=== PATIENT | male | born 1980 | race Caucasian/White ===

== ENCOUNTER 2022-05-17 08:15 | Outpatient (RCR) | payer OTHER, SELFPAY ==
--- NOTE | 2022-03-07 15:57 | PT.OIE ---
Current Diagnoses Achilles tendinitis, unspecified leg (03/07/22) Visit Care Team Role Provider Type Papo Pleitez Attending Provider Non-Staff Family Provider Primary Care Provider Referring Provider Specialty: Medical Address: [address] [place] [address], [facility] Email: Physical Therapy Initial Evaluation PT-OP-A Visit Information Start: 03/03/22 15:45 Freq: Status: Active Protocol: Document 03/07/22 09:00 AMB (Rec: 03/09/22 15:56 AMB [id number]) Out-Patient Physical Therapy Visit Information Visit Information Visit Type Initial Evaluation Visit Start Time 09:00 Visit Stop Time 09:45 Total Visit Minutes 45 Visit Number 1 PT-OP-B Current Condition Start: 03/03/22 15:45 Freq: Status: Active Protocol: Document 03/07/22 09:00 AMB (Rec: 03/09/22 15:56 AMB [id number]) Current Condition History of Current Condition Onset Date 2 weeks ago Current Complaints left achilles pain History of Current Condition Patient was cutting while playing lacrosse and felt pain in his achilles. He kept playing. It was really hurting on the drive home, some swelling medially, but denies extreme swelling or bruising. [place] didn't tear the achilles per his report. Was wearing a boot, now has progressed to regular [place] boots. Doesn't really have pain with walking, but hasn't been running. Has been able to do light squats ok. Wants to be able to return to running/cutting. 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/Recovery PT-OP-C Subjective Start: 03/03/22 15:45 Freq: Status: Active Protocol: Document 03/07/22 09:00 AMB (Rec: 03/09/22 15:56 AMB [id number]) Patient Questionnaires Foot & Ankle Ability Measure- ADL and Sports FAAM-ADL Score 69 FAAM-ADL Impairment 1 to 19% Impaired (Score 67-83 ) FAAM-Sport Score 8 FAAM-Sport Impairment 60 to 79% Impaired (Score 6-11 ) Lower Extremity Functional Scale LEFS Score 69 LEFS Impairment 1 to 19% Impaired (Score 63-79 ) OP-PT Pain Assessment Comments Pain Comments 2/10 pain at left achilles, 4/ 10 left elbow, 2/10 left shoulder PT-OP-G Mobility & Gait Start: 03/03/22 15:45 Freq: Status: Active Protocol: Document 03/07/22 09:00 AMB (Rec: 03/09/22 15:56 AMB [id number]) OP Gait Assessment Comments Gait Comments No antalgia seen with walking PT-OP-J Posture/Palpation/Skin Start: 03/03/22 15:45 Freq: Status: Active Protocol: Document 03/07/22 09:00 AMB (Rec: 03/09/22 15:56 AMB [id number]) Palpation Assessment Location One Palpation Location Left achilles Palpation Findings Edema,Soft Tissue Tightness Palpation Details Tenderness and swelling at medial achilles PT-OP-M Strength Start: 03/03/22 15:45 Freq: Status: Active Protocol: Document 03/07/22 09:00 AMB (Rec: 03/09/22 15:56 AMB [id number]) Ankle/Foot Strength Ankle and Foot Manual Muscle Testing Left Dorsiflexion (L4) 5 Normal Inversion 5 Normal Eversion (S1) 5 Normal Comments 2/10 with double leg heel raise x 5. Can perform full range single leg heel raise, but increases pain PT-OP-Q Treatments Start: 03/03/22 15:45 Freq: Status: Active Protocol: Document 03/07/22 09:45 AMB (Rec: 03/09/22 15:57 AMB [id number]) Therapeutic Exercises Standing Exercises single leg heel raise Standing Exercise Name eccentri conl Side left Reps/Minutes 10 double leg heel raise Side left Reps/Minutes 10 Other Exercises downward dog Reps/Minutes 30x2 PT-OP-T Assessment and Plan Start: 03/03/22 15:45 Freq: Status: Active Protocol: Document 03/07/22 09:00 AMB (Rec: 03/09/22 15:56 AMB [id number]) Physical Therapy Assessment Rehab Potential Rehabilitation Potential Good Evaluation Complexity Number of Personal Factors/Comorbidities 0 Number of Body Systems Impaired 1-2 Clinical Presentation at Evaluation Stable Impairments Impairments Activity Tolerance,Strength Goals Two Impairment Return to sport Short Term Goal (STG) Ras will run 1 mile over smooth terrain without achilles pain. STG Duration 4 weeks Longterm Goal (LTG) Ras will sprint and cut without pain. LTG Duration 8 weeks One Impairment Strength Short Term Goal (STG) Ras will perform 20 double leg heel raises without achilles pain. STG Duration 4 weeks Code Inspector Goal (LTG) Ras will perform 20 single leg heel raises without achilles pain. LTG Duration 8 weeks Assessment Summary Assessment Ras attends physical therapy 2 weeks s/p achilles sprain. He has retained good ankle flexibility and strength with the exception of weakness and pain with single leg heel raises. He will benefit from physical therapy for help progressing back to sport. He is unable to run, cut or jump, and given his active lifestyle an active duty [place] status, this is important to return to quickly and safely. He also has signs and symptoms consistent with lateral epicondylitis that is more chronic in nature . Physical Therapy Plan Frequency and Duration Frequency of Treatment 2x/Week Duration of Treatment 8 weeks Plan of Care Start Date 03/07/22 Plan of Care End Date 04/25/22 Therapeutic Interventions Therapeutic Interventions Balance Training,Gait Training ,Home Exercise Program,Manual Therapy,Neuromuscular Re- education,Self-Care/Home Management,Soft Tissue Mobilization,Taping, Therapeutic Activities, Therapeutic Exercises Modalities Biofeedback,Cold Pack/Ice Massage,Electric Stimulation, Hot Packs Next Visit Focus/Plan Next Note Type Treatment Note Next Visit Plan Review current HEP: double leg heel raise, eccentric uni heel raise, downward dog
--- NOTE | 2022-03-07 15:58 | PT.OPPOC ---
Physical, Occupational & Speech Therapy At [facility] Current Diagnoses Achilles tendinitis, unspecified leg (03/07/22) Visit Care Team Role Provider Type Papo Pleitez Attending Provider Non-Staff Family Provider Primary Care Provider Referring Provider Specialty: Medical Address: [address] [place] [address], [id number] Email: Plan Of Care PT-OP-T Assessment and Plan Start: 03/03/22 15:45 Freq: Status: Active Protocol: Document 03/07/22 09:00 AMB (Rec: 03/09/22 15:56 AMB [id number]) Physical Therapy Assessment Rehab Potential Rehabilitation Potential Good Evaluation Complexity Number of Personal Factors/Comorbidities 0 Number of Body Systems Impaired 1-2 Clinical Presentation at Evaluation Stable Impairments Impairments Activity Tolerance,Strength Goals Two Impairment Return to sport Short Term Goal (STG) Ras will run 1 mile over smooth terrain without achilles pain. STG Duration 4 weeks Funeral Planning Counselor Goal (LTG) Ras will sprint and cut without pain. LTG Duration 8 weeks One Impairment Strength Short Term Goal (STG) Ras will perform 20 double leg heel raises without achilles pain. STG Duration 4 weeks Funeral Planning Counselor Goal (LTG) Ras will perform 20 single leg heel raises without achilles pain. LTG Duration 8 weeks Assessment Summary Assessment Ras attends physical therapy 2 weeks s/p achilles sprain. He has retained good ankle flexibility and strength with the exception of weakness and pain with single leg heel raises. He will benefit from physical therapy for help progressing back to sport. He is unable to run, cut or jump, and given his active lifestyle an active duty [place] status, this is important to return to quickly and safely. He also has signs and symptoms consistent with lateral epicondylitis that is more chronic in nature . Physical Therapy Plan Frequency and Duration Frequency of Treatment 2x/Week Duration of Treatment 8 weeks Plan of Care Start Date 03/07/22 Plan of Care End Date 04/25/22 Therapeutic Interventions Therapeutic Interventions Balance Training,Gait Training ,Home Exercise Program,Manual Therapy,Neuromuscular Re- education,Self-Care/Home Management,Soft Tissue Mobilization,Taping, Therapeutic Activities, Therapeutic Exercises Modalities Biofeedback,Cold Pack/Ice Massage,Electric Stimulation, Hot Packs Next Visit Focus/Plan Next Note Type Treatment Note Next Visit Plan Review current HEP: double leg heel raise, eccentric uni heel raise, downward dog Plan of Care Dates Plan of Care Start Date 03/07/22 Plan of Care End Date 04/25/22 Electronically Signed by: Evelia Estrada, PT 03/09/22 9824 If you are in agreement with this Plan of Care, please return a signed and dated copy. I have reviewed this Plan of Care and certify that the skilled therapy services above are required to meet the patient?s needs. Physician Signature Date Printed Name and Credentials Clinical Instructor Signature Printed Name and Credentials
--- NOTE | 2022-03-13 12:56 | PT.OTN ---
Current Diagnoses Achilles tendinitis, unspecified leg (03/13/22) Physical Therapy Treatment Note PT-OP-A Visit Information Start: 03/03/22 15:45 Freq: Status: Active Protocol: Document 03/13/22 11:21 AMB (Rec: 03/13/22 11:48 AMB [id number]) Out-Patient Physical Therapy Visit Information Visit Information Visit Type Treatment Note Visit Start Time 11:15 Visit Stop Time 12:00 Total Visit Minutes 45 Visit Number 2 PT-OP-B Current Condition Start: 03/03/22 15:45 Freq: Status: Active Protocol: Document 03/07/22 09:00 AMB (Rec: 03/09/22 15:56 AMB [id number]) Current Condition History of Current Condition Onset Date 2 weeks ago Current Complaints left achilles pain History of Current Condition Patient was cutting while playing lacrosse and felt pain in his achilles. He kept playing. It was really hurting on the drive home, some swelling medially, but denies extreme swelling or bruising. [place] didn't tear the achilles per his report. Was wearing a boot, now has progressed to regular [place] boots. Doesn't really have pain with walking, but hasn't been running. Has been able to do light squats ok. Wants to be able to return to running/cutting. 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/Recovery PT-OP-C Subjective Start: 03/03/22 15:45 Freq: Status: Active Protocol: Document 03/13/22 11:21 AMB (Rec: 03/13/22 11:48 AMB [id number]) OP-PT Subjective Patient Comments Patient Comments Rolly has been doing PT-OP-G Mobility & Gait Start: 03/03/22 15:45 Freq: Status: Active Protocol: Document 03/07/22 09:00 AMB (Rec: 03/09/22 15:56 AMB [id number]) OP Gait Assessment Comments Gait Comments No antalgia seen with walking PT-OP-J Posture/Palpation/Skin Start: 03/03/22 15:45 Freq: Status: Active Protocol: Document 03/07/22 09:00 AMB (Rec: 03/09/22 15:56 AMB [id number]) Palpation Assessment Location One Palpation Location Left achilles Palpation Findings Edema,Soft Tissue Tightness Palpation Details Tenderness and swelling at medial achilles PT-OP-M Strength Start: 03/03/22 15:45 Freq: Status: Active Protocol: Document 03/07/22 09:00 AMB (Rec: 03/09/22 15:56 AMB [id number]) Ankle/Foot Strength Ankle and Foot Manual Muscle Testing Left Dorsiflexion (L4) 5 Normal Inversion 5 Normal Eversion (S1) 5 Normal Comments 2/10 with double leg heel raise x 5. Can perform full range single leg heel raise, but increases pain PT-OP-Q Treatments Start: 03/03/22 15:45 Freq: Status: Active Protocol: Document 03/13/22 12:44 AMB (Rec: 03/13/22 12:54 AMB [id number]) Gym Equipment Shuttle Recovery plyo Details single leg hop Resistance 50# Reps/Time 2x10 Unilateral Heel Raises Resistance 50# Reps/Time 2x10 Bilateral Heel Raises Resistance 50# Reps/Time 2x10 Unilateral Squats Resistance 50# Reps/Time 2x10 Bilateral Squats Resistance 50# Reps/Time 1x10 Therapeutic Exercises Standing Exercises single leg hop Comments painful did not continue double leg hop Reps/Minutes 2x10 Comments small AMADOU Reps/Minutes 30x3 single leg heel raise Standing Exercise Name eccentri conl Side left Reps/Minutes 10 double leg heel raise Side left Reps/Minutes 10 Manual Therapy Treatment Soft Tissue Mobilization STM Body Location achilles/calf Body Position Sitting PT-OP-T Assessment and Plan Start: 03/03/22 15:45 Freq: Status: Active Protocol: Document 03/13/22 12:44 AMB (Rec: 03/13/22 12:54 AMB [id number]) Physical Therapy Assessment Goals Two Impairment Return to sport Short Term Goal (STG) Ras will run 1 mile over smooth terrain without achilles pain. STG Duration 4 weeks Assisted Goal (LTG) Ras will sprint and cut without pain. LTG Duration 8 weeks One Impairment Strength Short Term Goal (STG) Ras will perform 20 double leg heel raises without achilles pain. STG Duration 4 weeks Kitchen Food Server Goal (LTG) Ras will perform 20 single leg heel raises without achilles pain. LTG Duration 8 weeks Assessment Summary Assessment Rolly tolerated PT well with the exception of agility ladder single leg hops, which increased pain significantly, pain reduced with manual therapy, given double leg hops as HEP. Consider small single leg hops next viist. Physical Therapy Plan Next Visit Focus/Plan Next Note Type Treatment Note Next Visit Plan Progress plyometrics/agility
--- NOTE | 2022-03-16 11:05 | PT.OTN ---
Current Diagnoses Achilles tendinitis, unspecified leg (03/16/22) Physical Therapy Treatment Note PT-OP-A Visit Information Start: 03/03/22 15:45 Freq: Status: Active Protocol: Document 03/16/22 09:45 AMB (Rec: 03/16/22 11:02 AMB [id number]) Out-Patient Physical Therapy Visit Information Visit Information Visit Type Treatment Note Visit Start Time 09:45 Visit Stop Time 10:30 Total Visit Minutes 45 Visit Number 3 PT-OP-B Current Condition Start: 03/03/22 15:45 Freq: Status: Active Protocol: Document 03/07/22 09:00 AMB (Rec: 03/09/22 15:56 AMB [id number]) Current Condition History of Current Condition Onset Date 2 weeks ago Current Complaints left achilles pain History of Current Condition Patient was cutting while playing lacrosse and felt pain in his achilles. He kept playing. It was really hurting on the drive home, some swelling medially, but denies extreme swelling or bruising. [place] showed that [place] didn't tear the achilles per his report. Was wearing a boot, now has progressed to regular [place] boots. Doesn't really have pain with walking, but hasn't been running. Has been able to do light squats ok. Wants to be able to return to running/cutting. 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 Did try lightly jogging to mailbox and that went fine. PT-OP-G Mobility & Gait Start: 03/03/22 15:45 Freq: Status: Active Protocol: Document 03/07/22 09:00 AMB (Rec: 03/09/22 15:56 AMB [id number]) OP Gait Assessment Comments Gait Comments No antalgia seen with walking PT-OP-J Posture/Palpation/Skin Start: 03/03/22 15:45 Freq: Status: Active Protocol: Document 03/07/22 09:00 AMB (Rec: 03/09/22 15:56 AMB [id number]) Palpation Assessment Location One Palpation Location Left achilles Palpation Findings Edema,Soft Tissue Tightness Palpation Details Tenderness and swelling at medial achilles PT-OP-M Strength Start: 03/03/22 15:45 Freq: Status: Active Protocol: Document 03/07/22 09:00 AMB (Rec: 03/09/22 15:56 AMB [id number]) Ankle/Foot Strength Ankle and Foot Manual Muscle Testing Left Dorsiflexion (L4) 5 Normal Inversion 5 Normal Eversion (S1) 5 Normal Comments 2/10 with double leg heel raise x 5. Can perform full range single leg heel raise, but increases pain PT-OP-Q Treatments Start: 03/03/22 15:45 Freq: Status: Active Protocol: Document 03/16/22 09:44 AMB (Rec: 03/16/22 10:43 AMB [id number]) Gym Equipment Shuttle Recovery plyo Details single leg hop Resistance 75# Reps/Time 2x10 Unilateral Heel Raises Resistance 50# Reps/Time 2x10 Bilateral Heel Raises Resistance 50# Reps/Time 2x10 Unilateral Squats Resistance 50# Reps/Time 2x10 Bilateral Squats Resistance 75# Reps/Time 1x10 Therapeutic Exercises Standing Exercises skipping Standing Exercise Name painful double leg hop Reps/Minutes 2x10 Comments small AMADOU Reps/Minutes 30x3 single leg heel raise Standing Exercise Name eccentri conl Side left Reps/Minutes 2x10 double leg heel raise Side left Reps/Minutes 10 Manual Therapy Treatment Soft Tissue Mobilization STM Body Location achilles/calf Body Position Sitting Joint Mobilizations talocrural Direction AP PT-OP-T Assessment and Plan Start: 03/03/22 15:45 Freq: Status: Active Protocol: Document 03/16/22 09:45 AMB (Rec: 03/16/22 11:02 AMB [id number]) Physical Therapy Assessment Goals Two Impairment Return to sport Short Term Goal (STG) Ras will run 1 mile over smooth terrain without achilles pain. STG Duration 4 weeks Engineer System Administrator Goal (LTG) Ras will sprint and cut without pain. LTG Duration 8 weeks One Impairment Strength Short Term Goal (STG) Ras will perform 20 double leg heel raises without achilles pain. STG Duration 4 weeks Engineer System Administrator Goal (LTG) Ras will perform 20 single leg heel raises without achilles pain. LTG Duration 8 weeks Assessment Summary Assessment Rolly did have pain with skipping, resolved with manual . Otherwise tolerating hopping well, but did not give go ahead to return to running until he can skip without pain. Physical Therapy Plan Next Visit Focus/Plan Next Note Type Treatment Note Next Visit Plan Progress plyometrics/agility
--- NOTE | 2022-03-28 12:00 | PT.OTN ---
Current Diagnoses Achilles tendinitis, unspecified leg (03/28/22) Physical Therapy Treatment Note PT-OP-A Visit Information Start: 03/03/22 15:45 Freq: Status: Active Protocol: Document 03/27/22 11:15 AMB (Rec: 03/30/22 07:33 AMB [id number]) Out-Patient Physical Therapy Visit Information Visit Information Visit Type Treatment Note Visit Start Time 11:15 Visit Stop Time 12:00 Total Visit Minutes 45 Visit Number 4 PT-OP-B Current Condition Start: 03/03/22 15:45 Freq: Status: Active Protocol: Document 03/07/22 09:00 AMB (Rec: 03/09/22 15:56 AMB [id number]) Current Condition History of Current Condition Onset Date 2 weeks ago Current Complaints left achilles pain History of Current Condition Patient was cutting while playing lacrosse and felt pain in his achilles. He kept playing. It was really hurting on the drive home, some swelling medially, but denies extreme swelling or bruising. [place] showed that [place] didn't tear the achilles per his report. Was wearing a boot, now has progressed to regular [place] boots. Doesn't really have pain with walking, but hasn't been running. Has been able to do light squats ok. Wants to be able to return to running/cutting. 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 PT-OP-G Mobility & Gait Start: 03/03/22 15:45 Freq: Status: Active Protocol: Document 03/07/22 09:00 AMB (Rec: 03/09/22 15:56 AMB [id number]) OP Gait Assessment Comments Gait Comments No antalgia seen with walking PT-OP-J Posture/Palpation/Skin Start: 03/03/22 15:45 Freq: Status: Active Protocol: Document 03/07/22 09:00 AMB (Rec: 03/09/22 15:56 AMB [id number]) Palpation Assessment Location One Palpation Location Left achilles Palpation Findings Edema,Soft Tissue Tightness Palpation Details Tenderness and swelling at medial achilles PT-OP-M Strength Start: 03/03/22 15:45 Freq: Status: Active Protocol: Document 03/07/22 09:00 AMB (Rec: 03/09/22 15:56 AMB [id number]) Ankle/Foot Strength Ankle and Foot Manual Muscle Testing Left Dorsiflexion (L4) 5 Normal Inversion 5 Normal Eversion (S1) 5 Normal Comments 2/10 with double leg heel raise x 5. Can perform full range single leg heel raise, but increases pain PT-OP-Q Treatments Start: 03/03/22 15:45 Freq: Status: Active Protocol: Document 03/27/22 11:15 AMB (Rec: 03/30/22 07:33 AMB [id number]) Therapeutic Exercises Standing Exercises single leg hop Standing Exercise Name long jump, little hops ok Comments pain double leg hop Reps/Minutes 2x10 Comments long jump AMADOU Reps/Minutes 30x3 single leg heel raise Standing Exercise Name eccentri conl Side left Reps/Minutes 2x10 Manual Therapy Treatment Soft Tissue Mobilization STM Body Location achilles/calf Body Position Sitting PT-OP-T Assessment and Plan Start: 03/03/22 15:45 Freq: Status: Active Protocol: Document 03/27/22 11:15 AMB (Rec: 03/30/22 07:33 AMB [id number]) Physical Therapy Assessment Goals Two Impairment Return to sport Short Term Goal (STG) Ras will run 1 mile over smooth terrain without achilles pain. STG Duration 4 weeks Almond Paste Molder Goal (LTG) Ras will sprint and cut without pain. LTG Duration 8 weeks One Impairment Strength Short Term Goal (STG) Ras will perform 20 double leg heel raises without achilles pain. STG Duration 4 weeks Almond Paste Molder Goal (LTG) Ras will perform 20 single leg heel raises without achilles pain. LTG Duration 8 weeks Assessment Summary Assessment Rolly had pain with single leg long jumps. He was able to do double leg long jumps without pain. Did allow him to go for a 1 mile jog (no cutting) and report back how his pain does with that. Physical Therapy Plan Next Visit Focus/Plan Next Note Type Treatment Note Next Visit Plan Progress plyometrics/agility
--- NOTE | 2022-04-04 09:03 | PT.OTN ---
Current Diagnoses Achilles tendinitis, unspecified leg (04/04/22) Physical Therapy Treatment Note PT-OP-A Visit Information Start: 03/03/22 15:45 Freq: Status: Active Protocol: Document 04/04/22 08:19 AMB (Rec: 04/04/22 09:03 AMB [id number]) Out-Patient Physical Therapy Visit Information Visit Information Visit Start Time 08:15 Visit Stop Time 09:00 Total Visit Minutes 45 Visit Number 5 PT-OP-B Current Condition Start: 03/03/22 15:45 Freq: Status: Active Protocol: Document 03/07/22 09:00 AMB (Rec: 03/09/22 15:56 AMB [id number]) Current Condition History of Current Condition Onset Date 2 weeks ago Current Complaints left achilles pain History of Current Condition Patient was cutting while playing lacrosse and felt pain in his achilles. He kept playing. It was really hurting on the drive home, some swelling medially, but denies extreme swelling or bruising. [place] that [place] didn't tear the achilles per his report. Was wearing a boot, now has progressed to regular [place] boots. Doesn't really have pain with walking, but hasn't been running. Has been able to do light squats ok. Wants to be able to return to running/cutting. 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 PT-OP-G Mobility & Gait Start: 03/03/22 15:45 Freq: Status: Active Protocol: Document 03/07/22 09:00 AMB (Rec: 03/09/22 15:56 AMB [id number]) OP Gait Assessment Comments Gait Comments No antalgia seen with walking PT-OP-J Posture/Palpation/Skin Start: 03/03/22 15:45 Freq: Status: Active Protocol: Document 03/07/22 09:00 AMB (Rec: 03/09/22 15:56 AMB [id number]) Palpation Assessment Location One Palpation Location Left achilles Palpation Findings Edema,Soft Tissue Tightness Palpation Details Tenderness and swelling at medial achilles PT-OP-M Strength Start: 03/03/22 15:45 Freq: Status: Active Protocol: Document 03/07/22 09:00 AMB (Rec: 03/09/22 15:56 AMB [id number]) Ankle/Foot Strength Ankle and Foot Manual Muscle Testing Left Dorsiflexion (L4) 5 Normal Inversion 5 Normal Eversion (S1) 5 Normal Comments 2/10 with double leg heel raise x 5. Can perform full range single leg heel raise, but increases pain PT-OP-Q Treatments Start: 03/03/22 15:45 Freq: Status: Active Protocol: Document 04/04/22 08:19 AMB (Rec: 04/04/22 09:03 AMB [id number]) Gym Equipment Shuttle Recovery plyo Details single leg hop Resistance 75# Reps/Time 2x10 Unilateral Heel Raises Resistance 50# Reps/Time 2x10 Bilateral Heel Raises Resistance 50# Reps/Time 2x10 Unilateral Squats Resistance 50# Reps/Time 2x10 Bilateral Squats Resistance 75# Reps/Time 1x10 Therapeutic Exercises Standing Exercises ladder Standing Exercise Name fwd Comments good skipping Standing Exercise Name painful- less painful single leg hop Standing Exercise Name little hops ok double leg hop Reps/Minutes 2x10 Comments small AMADOU Reps/Minutes 30x3 single leg heel raise Standing Exercise Name eccentri conl Side left Reps/Minutes 2x10 Manual Therapy Treatment Soft Tissue Mobilization STM Body Location achilles/calf Body Position Sitting PT-OP-T Assessment and Plan Start: 03/03/22 15:45 Freq: Status: Active Protocol: Document 04/04/22 08:19 AMB (Rec: 04/04/22 09:03 AMB [id number]) Physical Therapy Assessment Goals Two Impairment Return to sport Short Term Goal (STG) Ras will run 1 mile over smooth terrain without achilles pain. STG Duration 4 weeks Fpc Goal (LTG) Ras will sprint and cut without pain. LTG Duration 8 weeks One Impairment Strength Short Term Goal (STG) Ras will perform 20 double leg heel raises without achilles pain. STG Duration 4 weeks Fpc Goal (LTG) Ras will perform 20 single leg heel raises without achilles pain. LTG Duration 8 weeks Assessment Summary Assessment Rolly had pain with skipping, but fwd hopping is better, lateral hopping is more painful than forward. Medial achilles pain with push off with lateral movements. Physical Therapy Plan Next Visit Focus/Plan Next Note Type Treatment Note Next Visit Plan Progress plyometrics/agility
--- NOTE | 2022-04-14 08:17 | PT.OTN ---
Current Diagnoses Achilles tendinitis, unspecified leg (04/14/22) Physical Therapy Treatment Note PT-OP-A Visit Information Start: 03/03/22 15:45 Freq: Status: Active Protocol: Document 04/14/22 07:38 AMB (Rec: 04/14/22 08:16 AMB [id number]) Out-Patient Physical Therapy Visit Information Visit Information Visit Type Treatment Note Visit Start Time 07:30 Visit Stop Time 08:15 Total Visit Minutes 45 Visit Number 6 PT-OP-B Current Condition Start: 03/03/22 15:45 Freq: Status: Active Protocol: Document 03/07/22 09:00 AMB (Rec: 03/09/22 15:56 AMB [id number]) Current Condition History of Current Condition Onset Date 2 weeks ago Current Complaints left achilles pain History of Current Condition Patient was cutting while playing lacrosse and felt pain in his achilles. He kept playing. It was really hurting on the drive home, some swelling medially, but denies extreme swelling or bruising. Pt [place] showed that he didn't tear the achilles per his report. Was wearing a boot, now has progressed to regular [place] boots. Doesn't really have pain with walking, but hasn't been running. Has been able to do light squats ok. Wants to be able to return to running/cutting. 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 PT-OP-G Mobility & Gait Start: 03/03/22 15:45 Freq: Status: Active Protocol: Document 03/07/22 09:00 AMB (Rec: 03/09/22 15:56 AMB [id number]) OP Gait Assessment Comments Gait Comments No antalgia seen with walking PT-OP-J Posture/Palpation/Skin Start: 03/03/22 15:45 Freq: Status: Active Protocol: Document 03/07/22 09:00 AMB (Rec: 03/09/22 15:56 AMB [id number]) Palpation Assessment Location One Palpation Location Left achilles Palpation Findings Edema,Soft Tissue Tightness Palpation Details Tenderness and swelling at medial achilles PT-OP-M Strength Start: 03/03/22 15:45 Freq: Status: Active Protocol: Document 03/07/22 09:00 AMB (Rec: 03/09/22 15:56 AMB [id number]) Ankle/Foot Strength Ankle and Foot Manual Muscle Testing Left Dorsiflexion (L4) 5 Normal Inversion 5 Normal Eversion (S1) 5 Normal Comments 2/10 with double leg heel raise x 5. Can perform full range single leg heel raise, but increases pain PT-OP-Q Treatments Start: 03/03/22 15:45 Freq: Status: Active Protocol: Document 04/14/22 07:38 AMB (Rec: 04/14/22 08:16 AMB [id number]) Therapeutic Exercises Standing Exercises ladder Standing Exercise Name fwd/medial/lateral Comments good skipping Standing Exercise Name good Reps/Minutes 20'x4 single leg hop Standing Exercise Name little hops ok double leg hop Reps/Minutes 2x10 Comments small AMADOU Reps/Minutes 30x3 single leg heel raise Standing Exercise Name eccentri conl Side left Reps/Minutes 2x10 PT-OP-T Assessment and Plan Start: 03/03/22 15:45 Freq: Status: Active Protocol: Document 04/14/22 07:38 AMB (Rec: 04/14/22 08:16 AMB [id number]) Physical Therapy Assessment Goals Two Impairment Return to sport Short Term Goal (STG) Ras will run 1 mile over smooth terrain without achilles pain. STG Duration 4 weeks Behavior Therapist Goal (LTG) Ras will sprint and cut without pain. LTG Duration 8 weeks One Impairment Strength Short Term Goal (STG) Ras will perform 20 double leg heel raises without achilles pain. STG Duration 4 weeks Half-Way Goal (LTG) Ras will perform 20 single leg heel raises without achilles pain. LTG Duration 8 weeks Assessment Summary Assessment Rolly is tolerating more agility, even lateral and medial movement. Physical Therapy Plan Next Visit Focus/Plan Next Note Type Treatment Note Next Visit Plan Progress plyometrics/agility
--- NOTE | 2022-05-05 15:38 | PT.OTN ---
Current Diagnoses Achilles tendinitis, unspecified leg (05/05/22) Physical Therapy Treatment Note PT-OP-A Visit Information Start: 03/03/22 15:45 Freq: Status: Active Protocol: Document 05/05/22 13:44 AMB (Rec: 05/05/22 14:28 AMB [id number]) Out-Patient Physical Therapy Visit Information Visit Information Visit Type Treatment Note Visit Start Time 13:45 Visit Stop Time 14:30 Total Visit Minutes 45 Visit Number 7 PT-OP-B Current Condition Start: 03/03/22 15:45 Freq: Status: Active Protocol: Document 03/07/22 09:00 AMB (Rec: 03/09/22 15:56 AMB [id number]) Current Condition History of Current Condition Onset Date 2 weeks ago Current Complaints left achilles pain History of Current Condition Patient was cutting while playing lacrosse and felt pain in his achilles. He kept playing. It was really hurting on the drive home, some swelling medially, but denies extreme swelling or bruising. [place] showed that [place] didn't tear the achilles per his report. Was wearing a boot, now has progressed to regular [place] boots. Doesn't really have pain with walking, but hasn't been running. Has been able to do light squats ok. Wants to be able to return to running/cutting. 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 Has been running sub7s. 12-15 miles in a week total. PT-OP-G Mobility & Gait Start: 03/03/22 15:45 Freq: Status: Active Protocol: Document 03/07/22 09:00 AMB (Rec: 03/09/22 15:56 AMB [id number]) OP Gait Assessment Comments Gait Comments No antalgia seen with walking PT-OP-J Posture/Palpation/Skin Start: 03/03/22 15:45 Freq: Status: Active Protocol: Document 03/07/22 09:00 AMB (Rec: 03/09/22 15:56 AMB [id number]) Palpation Assessment Location One Palpation Location Left achilles Palpation Findings Edema,Soft Tissue Tightness Palpation Details Tenderness and swelling at medial achilles PT-OP-M Strength Start: 03/03/22 15:45 Freq: Status: Active Protocol: Document 03/07/22 09:00 AMB (Rec: 03/09/22 15:56 AMB [id number]) Ankle/Foot Strength Ankle and Foot Manual Muscle Testing Left Dorsiflexion (L4) 5 Normal Inversion 5 Normal Eversion (S1) 5 Normal Comments 2/10 with double leg heel raise x 5. Can perform full range single leg heel raise, but increases pain PT-OP-Q Treatments Start: 03/03/22 15:45 Freq: Status: Active Protocol: Document 05/05/22 13:44 AMB (Rec: 05/05/22 14:28 AMB [id number]) Therapeutic Exercises Standing Exercises cutting Standing Exercise Name 25'x2 sprint Standing Exercise Name outside 50'x5 ladder Standing Exercise Name fwd/medial/lateral Comments good skipping Standing Exercise Name good Reps/Minutes 20'x4 double leg hop Reps/Minutes 2x10 Comments small AMADOU Reps/Minutes 30x3 single leg heel raise Standing Exercise Name eccentri conl Side left Reps/Minutes 2x10 Manual Therapy Treatment Soft Tissue Mobilization STM Body Location achilles/calf Body Position Sitting Joint Mobilizations talocrural Direction AP PT-OP-T Assessment and Plan Start: 03/03/22 15:45 Freq: Status: Active Protocol: Document 05/05/22 13:44 AMB (Rec: 05/05/22 14:28 AMB [id number]) Physical Therapy Assessment Goals Two Impairment Return to sport Short Term Goal (STG) Ras will run 1 mile over smooth terrain without achilles pain. STG Duration 4 weeks Intermediate Goal (LTG) Ras will sprint and cut without pain. LTG Duration 8 weeks One Impairment Strength Short Term Goal (STG) Ras will perform 20 double leg heel raises without achilles pain. STG Duration 4 weeks Aircraft Landing Gear Inspector Goal (LTG) Ras will perform 20 single leg heel raises without achilles pain. LTG Duration 8 weeks Assessment Summary Assessment Rolly was sore after sprints and cuttingx 2, denied specific pain, but stated it will be sore Asked to pay attention to sx for rest of the day/tomorrow, and will either progress Physical Therapy Plan Next Visit Focus/Plan Next Note Type Treatment Note Next Visit Plan Progress plyometrics/agility/ cutting/sprinting as tolerated
--- NOTE | 2022-05-11 15:59 | PT.OPPOC ---
Physical, Occupational & Speech Therapy At [facility] Current Diagnoses Achilles tendinitis, unspecified leg (05/05/22) Visit Care Team Role Provider Type Papo Pleitez Attending Provider Non-Staff Family Provider Primary Care Provider Referring Provider Specialty: Medical Address: [address] [place] [address], [id number] Email: Plan Of Care PT-OP-T Assessment and Plan Start: 03/03/22 15:45 Freq: Status: Active Protocol: Document 05/05/22 13:44 AMB (Rec: 05/05/22 14:28 AMB [id number]) Physical Therapy Assessment Goals Two Impairment Return to sport Short Term Goal (STG) Ras will run 1 mile over smooth terrain without achilles pain. STG Duration MET Residential Goal (LTG) Ras will sprint and cut without pain. LTG Duration 8 weeks One Impairment Strength Short Term Goal (STG) Ras will perform 20 double leg heel raises without achilles pain. STG Duration MET Mold Polisher Goal (LTG) Ras will perform 20 single leg heel raises without achilles pain. LTG Duration 8 weeks Assessment Summary Assessment Overall Rolly is improving in strength. HE has returned to running without significant pain, but we are now working on improving speed. Rolly was sore after sprints and cuttingx 2, denied specific pain, but stated it will be sore Asked to pay attention to sx for rest of the day/ tomorrow, and will either progress or cut back dependent on pain/inflammation after cutting activities. Physical Therapy Plan Frequency and Duration Frequency of Treatment 1x/Week Duration of Treatment 8 weeks Plan of Care Start Date 04/25/22 Plan of Care End Date 06/20/22 Therapeutic Interventions Therapeutic Interventions Balance Training,Gait Training ,Home Exercise Program,Manual Therapy,Neuromuscular Re- education,Self-Care/Home Management,Soft Tissue Mobilization,Taping, Therapeutic Activities, Therapeutic Exercises Modalities Biofeedback,Cold Pack/Ice Massage,Electric Stimulation, Hot Packs Next Visit Focus/Plan Next Note Type Treatment Note Next Visit Plan Progress plyometrics/agility/ cutting/sprinting as tolerated Plan of Care Dates Plan of Care Start Date 04/25/22 Plan of Care End Date 06/20/22 Electronically Signed by: Evelia Estrada, PT 05/11/22 1559 If you are in agreement with this Plan of Care, please return a signed and dated copy. I have reviewed this Plan of Care and certify that the skilled therapy services above are required to meet the patient?s needs. Physician Signature Date Printed Name and Credentials Clinical Instructor Signature Printed Name and Credentials
--- NOTE | 2022-05-12 10:23 | PT.OTN ---
Current Diagnoses Achilles tendinitis, unspecified leg (05/12/22) Physical Therapy Treatment Note PT-OP-A Visit Information Start: 03/03/22 15:45 Freq: Status: Active Protocol: Document 05/12/22 07:37 AMB (Rec: 05/12/22 08:27 AMB [id number]) Out-Patient Physical Therapy Visit Information Visit Information Visit Type Treatment Note Visit Start Time 07:30 Visit Stop Time 08:15 Total Visit Minutes 45 Visit Number 8 PT-OP-B Current Condition Start: 03/03/22 15:45 Freq: Status: Active Protocol: Document 03/07/22 09:00 AMB (Rec: 03/09/22 15:56 AMB [id number]) Current Condition History of Current Condition Onset Date 2 weeks ago Current Complaints left achilles pain History of Current Condition Patient was cutting while playing lacrosse and felt pain in his achilles. He kept playing. It was really hurting on the drive home, some swelling medially, but denies extreme swelling or bruising. [place] didn't tear the achilles per his report. Was wearing a boot, now has progressed to regular [place] boots. Doesn't really have pain with walking, but hasn't been running. Has been able to do light squats ok. Wants to be able to return to running/cutting. 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 Was sore until the next morning but then was fine. PT-OP-G Mobility & Gait Start: 03/03/22 15:45 Freq: Status: Active Protocol: Document 03/07/22 09:00 AMB (Rec: 03/09/22 15:56 AMB [id number]) OP Gait Assessment Comments Gait Comments No antalgia seen with walking PT-OP-J Posture/Palpation/Skin Start: 03/03/22 15:45 Freq: Status: Active Protocol: Document 03/07/22 09:00 AMB (Rec: 03/09/22 15:56 AMB [id number]) Palpation Assessment Location One Palpation Location Left achilles Palpation Findings Edema,Soft Tissue Tightness Palpation Details Tenderness and swelling at medial achilles PT-OP-M Strength Start: 03/03/22 15:45 Freq: Status: Active Protocol: Document 03/07/22 09:00 AMB (Rec: 03/09/22 15:56 AMB [id number]) Ankle/Foot Strength Ankle and Foot Manual Muscle Testing Left Dorsiflexion (L4) 5 Normal Inversion 5 Normal Eversion (S1) 5 Normal Comments 2/10 with double leg heel raise x 5. Can perform full range single leg heel raise, but increases pain PT-OP-Q Treatments Start: 03/03/22 15:45 Freq: Status: Active Protocol: Document 05/12/22 10:20 AMB (Rec: 05/12/22 10:22 AMB [id number]) Gym Equipment Shuttle Recovery Unilateral Heel Raises Resistance 50# Reps/Time 2x10 Bilateral Heel Raises Resistance 50# Reps/Time 2x10 Therapeutic Exercises Standing Exercises cutting Standing Exercise Name 25'x2 sprint Standing Exercise Name outside 50'x5 ladder Standing Exercise Name fwd/medial/lateral Comments good skipping Standing Exercise Name good Reps/Minutes 20'x4 single leg hop Standing Exercise Name forward/lateral Reps/Minutes 10'x4 AMADOU Reps/Minutes 30x3 single leg heel raise Standing Exercise Name eccentri conl Side left Reps/Minutes 2x10 Manual Therapy Treatment Soft Tissue Mobilization STM Body Location achilles/calf Body Position Sitting Joint Mobilizations talocrural Direction AP PT-OP-T Assessment and Plan Start: 03/03/22 15:45 Freq: Status: Active Protocol: Document 05/12/22 10:20 AMB (Rec: 05/12/22 10:22 AMB [id number]) Physical Therapy Assessment Goals Two Impairment Return to sport Short Term Goal (STG) Ras will run 1 mile over smooth terrain without achilles pain. STG Duration MET Contact Center Agent Goal (LTG) Ras will sprint and cut without pain. LTG Duration 8 weeks One Impairment Strength Short Term Goal (STG) Ras will perform 20 double leg heel raises without achilles pain. STG Duration MET Contact Center Agent Goal (LTG) Ras will perform 20 single leg heel raises without achilles pain. 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 Tolerated cutting well todya, some stiffness following. Physical Therapy Plan Next Visit Focus/Plan Next Note Type Treatment Note Next Visit Plan Progress plyometrics/agility/ cutting/sprinting as tolerated
--- NOTE | 2022-05-17 12:54 | PT.OTN ---
Current Diagnoses Achilles tendinitis, unspecified leg (05/17/22) Physical Therapy Treatment Note PT-OP-A Visit Information Start: 03/03/22 15:45 Freq: Status: Active Protocol: Document 05/17/22 08:21 AMB (Rec: 05/17/22 09:03 AMB [id number]) Out-Patient Physical Therapy Visit Information Visit Information Visit Type Treatment Note Visit Start Time 08:15 Visit Stop Time 09:00 Total Visit Minutes 45 Visit Number 9 PT-OP-B Current Condition Start: 03/03/22 15:45 Freq: Status: Active Protocol: Document 03/07/22 09:00 AMB (Rec: 03/09/22 15:56 AMB [id number]) Current Condition History of Current Condition Onset Date 2 weeks ago Current Complaints left achilles pain History of Current Condition Patient was cutting while playing lacrosse and felt pain in his achilles. He kept playing. It was really hurting on the drive home, some swelling medially, but denies extreme swelling or bruising. [place] showed that he didn't tear the achilles per his report. Was wearing a boot, now has progressed to regular [place] boots. Doesn't really have pain with walking, but hasn't been running. Has been able to do light squats ok. Wants to be able to return to running/cutting. 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 PT-OP-G Mobility & Gait Start: 03/03/22 15:45 Freq: Status: Active Protocol: Document 03/07/22 09:00 AMB (Rec: 03/09/22 15:56 AMB [id number]) OP Gait Assessment Comments Gait Comments No antalgia seen with walking PT-OP-J Posture/Palpation/Skin Start: 03/03/22 15:45 Freq: Status: Active Protocol: Document 03/07/22 09:00 AMB (Rec: 03/09/22 15:56 AMB [id number]) Palpation Assessment Location One Palpation Location Left achilles Palpation Findings Edema,Soft Tissue Tightness Palpation Details Tenderness and swelling at medial achilles PT-OP-M Strength Start: 03/03/22 15:45 Freq: Status: Active Protocol: Document 03/07/22 09:00 AMB (Rec: 03/09/22 15:56 AMB [id number]) Ankle/Foot Strength Ankle and Foot Manual Muscle Testing Left Dorsiflexion (L4) 5 Normal Inversion 5 Normal Eversion (S1) 5 Normal Comments 2/10 with double leg heel raise x 5. Can perform full range single leg heel raise, but increases pain PT-OP-Q Treatments Start: 03/03/22 15:45 Freq: Status: Active Protocol: Document 05/17/22 12:46 AMB (Rec: 05/17/22 12:51 AMB [id number]) Therapeutic Exercises Standing Exercises cutting Standing Exercise Name 25'x2 sprint Standing Exercise Name outside 50'x5 single leg heel raise Standing Exercise Name eccentri conl Side left Reps/Minutes 2x10 Manual Therapy Treatment Soft Tissue Mobilization STM Body Location achilles/calf PT-OP-T Assessment and Plan Start: 03/03/22 15:45 Freq: Status: Active Protocol: Document 05/17/22 08:21 AMB (Rec: 05/17/22 09:03 AMB [id number]) Physical Therapy Assessment Goals Two Impairment Return to sport Short Term Goal (STG) Ras will run 1 mile over smooth terrain without achilles pain. STG Duration MET Fpc Goal (LTG) Ras will sprint and cut without pain. LTG Duration MET One Impairment Strength Short Term Goal (STG) Ras will perform 20 double leg heel raises without achilles pain. STG Duration MET Work Counselor Goal (LTG) Ras will perform 20 single leg heel raises without achilles pain. LTG Duration MET Assessment Summary Assessment Rolly was able to tolerate all exercises today without an increase in pain. Did discuss appropriate return to sport progression, as he has only done 20 minutes of sprinting cutting so far, but he could progress this at this point. We are going to d/c this case so we can focus on his elbow pain now. Physical Therapy Plan Discharge Physical Therapy Discharge Reasons Goals Met
== END 2022-05-18 14:16 ==
LOC: PHYS 08:15
PROVIDERS: Family Provider Student in an Organized Health Care Education/Training Program; PCP Student in an Organized Health Care Education/Training Program; Referring Provider Student in an Organized Health Care Education/Training Program; Visit Provider Student in an Organized Health Care Education/Training Program
DX: M76.60 Achilles tendinitis, unspecified leg (principal)
CPT/HCPCS: 97110; 97140; 97161

== ENCOUNTER 2022-05-31 08:15 | Outpatient (RCR) | payer OTHER, SELFPAY ==
--- NOTE | 2022-05-25 20:58 | PT.OIE ---
Current Diagnoses Lateral epicondylitis, unspecified elbow (05/25/22) Visit Care Team Role Provider Type Papo Pleitez Family Provider Non-Staff Primary Care Provider Specialty: Medical Address: [address] [place] [address], [id number] Email: Sheri Mckoy Attending Provider Non-Staff Referring Provider Specialty: Family Practice Address: [address] [place] [address], [id number] Email: Physical Therapy Initial Evaluation PT-OP-A Visit Information Start: 05/23/22 12:49 Freq: Status: Active Protocol: Document 05/25/22 13:03 AMB (Rec: 05/25/22 13:13 AMB [id number]) Out-Patient Physical Therapy Visit Information Visit Information Visit Type Initial Evaluation PT-OP-B Current Condition Start: 05/23/22 12:49 Freq: Status: Active Protocol: Document 05/25/22 13:03 AMB (Rec: 05/25/22 13:13 AMB [id number]) Current Condition History of Current Condition Onset Date January 2022 Current Complaints L lateral epicondylitis History of Current Condition Rolly states he started having left elbow pain insidiously. 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 It does seem like it is slowly getting better but is still bothersome months later. Personal Factors Other Personal Factors That May Effect Flies jet, cross fit, lacrosse Therapy/Recovery PT-OP-C Subjective Start: 05/23/22 12:49 Freq: Status: Active Protocol: Document 05/25/22 16:10 AMB (Rec: 05/25/22 16:11 AMB [id number]) OP-PT Subjective Patient Comments Patient Comments 4/10 pain in left elbow Patient Questionnaires Quick Dash- Upper Extremity Quick Dash UE Score 9 Quick Dash UE Impairment 1 to 19% Impaired (Score 1-19) PT-OP-J Posture/Palpation/Skin Start: 05/23/22 12:49 Freq: Status: Active Protocol: Document 05/25/22 13:00 AMB (Rec: 05/28/22 20:46 AMB [id number]) Palpation Assessment Location One Palpation Location L elbow Palpation Findings Edema,Tenderness Palpation Details At insertion of wrist extensors PT-OP-K Range of Motion Start: 05/23/22 12:49 Freq: Status: Active Protocol: Document 05/25/22 13:00 AMB (Rec: 05/28/22 20:46 [facility] [id number]) Elbow/Forearm Range of Motion Elbow/Forearm Left Active Elbow/Forearm ROM WFL Yes PT-OP-M Strength Start: 05/23/22 12:49 Freq: Status: Active Protocol: Document 05/25/22 13:00 AMB (Rec: 05/28/22 20:46 [facility] [id number]) Wrist Strength Wrist Manual Muscle Testing Left Flexion (C7) 5 Normal Extension (C6) 4+ Good+ PT-OP-Q Treatments Start: 05/23/22 12:49 Freq: Status: Active Protocol: Document 05/25/22 13:00 AMB (Rec: 05/28/22 20:[id number]) Therapeutic Exercises Sitting Exercises wrist extensor stretch Reps/Minutes 30x2 PT-OP-R Modalities Start: 05/23/22 12:49 Freq: Status: Active Protocol: Document 05/25/22 13:00 AMB (Rec: 05/28/22 20:46 [facility] [id number]) Ultrasound Therapy Treatment Left Elbow Treatment Duration (minutes) 8 Patient Position Sitting Coupling Medium Ultrasound Gel Frequency Setting (mHz) 1 Mode Setting Continuous Intensity Setting (w/cm2) 1.6 PT-OP-T Assessment and Plan Start: 05/23/22 12:49 Freq: Status: Active Protocol: Document 05/25/22 13:00 AMB (Rec: 05/28/22 20:58 [facility] [id number]) Physical Therapy Assessment Rehab Potential Rehabilitation Potential Good Evaluation Complexity Number of Personal Factors/Comorbidities 0 Number of Body Systems Impaired 1-2 Clinical Presentation at Evaluation Stable Impairments Impairments Pain,Strength Goals Two Impairment Strength Short Term Goal (STG) Rolyl will be consistent and independent with a HEP. STG Duration 4 weeks One Impairment Pain Short Term Goal (STG) Rolly will perform 10 pull ups without elbow pain. STG Duration 4 weeks Long-Term Goal (LTG) Rolly will wake from sleeping without elbow pain. LTG Duration 8 weeks Assessment Summary Assessment Rolly attends physical therapy with lateral epicondylitis, insidious onset. While the pain is decreasing in intensity, it is lingering on and impacting his ability to exercise without pain. He will benefit from physical therapy to reduce inflammation and instruct in an appropriate exercise program. Physical Therapy Plan Frequency and Duration Frequency of Treatment 1x/Week Duration of Treatment 8 weeks Plan of Care Start Date 05/25/22 Plan of Care End Date 07/13/22 Therapeutic Interventions Therapeutic Interventions Home Exercise Program,Manual Therapy,Neuromuscular Re- education,Self-Care/Home Management,Therapeutic Activities,Therapeutic Exercises Modalities Cold Pack/Ice Massage, Iontophoresis Other Therapeutic Interventions iontophoresis with dexamethesone
--- NOTE | 2022-05-25 20:59 | PT.OPPOC ---
Physical, Occupational & Speech Therapy At [facility] Current Diagnoses Lateral epicondylitis, unspecified elbow (05/25/22) Visit Care Team Role Provider Type Papo Pleitez Family Provider Non-Staff Primary Care Provider Specialty: Medical Address: [address] [place] [address], [id number] Email: Sheri Mckoy Attending Provider Non-Staff Referring Provider Specialty: Family Practice Address: [address] [place] [address], [id number] Email: Plan Of Care PT-OP-T Assessment and Plan Start: 05/23/22 12:49 Freq: Status: Active Protocol: Document 05/25/22 13:00 AMB (Rec: 05/28/22 20:58 AMB [id number]) Physical Therapy Assessment Rehab Potential Rehabilitation Potential Good Evaluation Complexity Number of Personal Factors/Comorbidities 0 Number of Body Systems Impaired 1-2 Clinical Presentation at Evaluation Stable Impairments Impairments Pain,Strength Goals Two Impairment Strength Short Term Goal (STG) Rolly will be consistent and independent with a HEP. STG Duration 4 weeks One Impairment Pain Short Term Goal (STG) Rolly will perform 10 pull ups without elbow pain. STG Duration 4 weeks Camp Housekeeper Goal (LTG) Rolly will wake from sleeping without elbow pain. LTG Duration 8 weeks Assessment Summary Assessment Rolly attends physical therapy with lateral epicondylitis, insidious onset. While the pain is decreasing in intensity, it is lingering on and impacting his ability to exercise without pain. He will benefit from physical therapy to reduce inflammation and instruct in an appropriate exercise program. Physical Therapy Plan Frequency and Duration Frequency of Treatment 1x/Week Duration of Treatment 8 weeks Plan of Care Start Date 05/25/22 Plan of Care End Date 07/13/22 Therapeutic Interventions Therapeutic Interventions Home Exercise Program,Manual Therapy,Neuromuscular Re- education,Self-Care/Home Management,Therapeutic Activities,Therapeutic Exercises Modalities Cold Pack/Ice Massage, Iontophoresis Other Therapeutic Interventions iontophoresis with dexamethesone Plan of Care Dates Plan of Care Start Date 05/25/22 Plan of Care End Date 07/13/22 Electronically Signed by: Evelia Estrada, PT 05/28/22 0198 If you are in agreement with this Plan of Care, please return a signed and dated copy. I have reviewed this Plan of Care and certify that the skilled therapy services above are required to meet the patient?s needs. Physician Signature Date Printed Name and Credentials Clinical Instructor Signature Printed Name and Credentials
--- NOTE | 2022-05-31 21:31 | PT.OTN ---
Current Diagnoses Lateral epicondylitis, unspecified elbow (05/31/22) Physical Therapy Treatment Note PT-OP-A Visit Information Start: 05/23/22 12:49 Freq: Status: Active Protocol: Document 05/31/22 08:15 AMB (Rec: 05/31/22 21:30 AMB [id number]) Out-Patient Physical Therapy Visit Information Visit Information Visit Type Treatment Note Visit Start Time 08:15 Visit Stop Time 08:55 Total Visit Minutes 40 Visit Number 2 PT-OP-B Current Condition Start: 05/23/22 12:49 Freq: Status: Active Protocol: Document 05/25/22 13:03 AMB (Rec: 05/25/22 13:13 AMB [id number]) Current Condition History of Current Condition Onset Date January 2022 Current Complaints L lateral epicondylitis History of Current Condition Rolly states he started having left elbow pain insidiously. 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 It does seem like it is slowly getting better but is still bothersome months later. Personal Factors Other Personal Factors That May Effect Flies jet, cross fit, lacrosse Therapy/Recovery PT-OP-C Subjective Start: 05/23/22 12:49 Freq: Status: Active Protocol: Document 05/31/22 08:15 AMB (Rec: 05/31/22 21:30 AMB [id number]-) OP-PT Subjective Patient Comments Patient Comments Pt has been doing ok, can definitely feel it with clean lifts. PT-OP-J Posture/Palpation/Skin Start: 05/23/22 12:49 Freq: Status: Active Protocol: Document 05/25/22 13:00 AMB (Rec: 05/28/22 20:46 AMB [id number]-) Palpation Assessment Location One Palpation Location L elbow Palpation Findings Edema,Tenderness Palpation Details At insertion of wrist extensors PT-OP-K Range of Motion Start: 05/23/22 12:49 Freq: Status: Active Protocol: Document 05/25/22 13:00 AMB (Rec: 05/28/22 20:46 AMB [id number]-) Elbow/Forearm Range of Motion Elbow/Forearm Left Active Elbow/Forearm ROM WFL Yes PT-OP-M Strength Start: 05/23/22 12:49 Freq: Status: Active Protocol: Document 05/25/22 13:00 AMB (Rec: 05/28/22 20:46 AMB [id number]) Wrist Strength Wrist Manual Muscle Testing Left Flexion (C7) 5 Normal Extension (C6) 4+ Good+ PT-OP-Q Treatments Start: 05/23/22 12:49 Freq: Status: Active Protocol: Document 05/31/22 08:15 AMB (Rec: 05/31/22 21:30 AMB [id number]) Manual Therapy Treatment Soft Tissue Mobilization wrist extensors Mobilization Type Instrument Assisted,Myofascial Release,Strumming Intensity/Depth Moderate Body Position Sitting Taping 1 Body Location L forearm Treatment Focus inflammation control Type of Tape Kinesio Tape Comments I strip just distal to tendon insertion around forearm PT-OP-R Modalities Start: 05/23/22 12:49 Freq: Status: Active Protocol: Document 05/31/22 08:15 AMB (Rec: 05/31/22 21:31 AMB [id number]) Ultrasound Therapy Treatment Left Elbow Treatment Duration (minutes) 8 Patient Position Sitting Coupling Medium Ultrasound Gel Frequency Setting (mHz) 1 Mode Setting Continuous Intensity Setting (w/cm2) 1.6 PT-OP-T Assessment and Plan Start: 05/23/22 12:49 Freq: Status: Active Protocol: Document 05/31/22 08:15 AMB (Rec: 05/31/22 21:30 AMB [id number]) Physical Therapy Assessment Goals Two Impairment Strength Short Term Goal (STG) Rolly will be consistent and independent with a HEP. STG Duration 4 weeks One Impairment Pain Short Term Goal (STG) Rolly will perform 10 pull ups without elbow pain. STG Duration 4 weeks Carding Machine Feeder Goal (LTG) Rolly will wake from sleeping without elbow pain. LTG Duration 8 weeks Assessment Summary Assessment Rolly tolerated manual well, will need to follow up on kinesiotape tolerance. Physical Therapy Plan Next Visit Focus/Plan Next Visit Plan Consider ionto with dexamethasone, look at body mechancis for clean and jerk
--- NOTE | 2022-07-19 16:09 | PT.OPDS ---
Current Diagnoses Lateral epicondylitis, unspecified elbow (05/31/22) Visit Care Team Role Provider Type Papo Pleitez Family Provider Non-Staff Primary Care Provider Specialty: Medical Address: [address] [place] [address], [address] Email: Sheri Mckoy Attending Provider Non-Staff Referring Provider Specialty: Family Practice Address: [address] [place] [address], [address] Email: Visit Number Visit Number 2 Discharge Summary PT-OP-B Current Condition Start: 05/23/22 12:49 Freq: Status: Active Protocol: Document 05/25/22 13:03 AMB (Rec: 05/25/22 13:13 AMB [id number]) Current Condition History of Current Condition Onset Date January 2022 Current Complaints L lateral epicondylitis History of Current Condition Rolly states he started having left elbow pain insidiously. 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 It does seem like it is slowly getting better but is still bothersome months later. Personal Factors Other Personal Factors That May Effect Flies jet, cross fit, lacrosse Therapy/Recovery PT-OP-C Subjective Start: 05/23/22 12:49 Freq: Status: Active Protocol: Document 05/31/22 08:15 AMB (Rec: 05/31/22 21:30 AMB [id number]) OP-PT Subjective Patient Comments Patient Comments Pt has been doing ok, can definitely feel it with clean lifts. PT-OP-J Posture/Palpation/Skin Start: 05/23/22 12:49 Freq: Status: Active Protocol: Document 05/25/22 13:00 AMB (Rec: 05/28/22 20:46 AMB [id number]-) Palpation Assessment Location One Palpation Location L elbow Palpation Findings Edema,Tenderness Palpation Details At insertion of wrist extensors PT-OP-K Range of Motion Start: 05/23/22 12:49 Freq: Status: Active Protocol: Document 05/25/22 13:00 AMB (Rec: 08/28/22 20:46 AMB [id number]) Elbow/Forearm Range of Motion Elbow/Forearm Left Active Elbow/Forearm ROM WFL Yes PT-OP-M Strength Start: 05/23/22 12:49 Freq: Status: Active Protocol: Document 05/25/22 13:00 AMB (Rec: 05/28/22 20:46 AMB [id number]) Wrist Strength Wrist Manual Muscle Testing Left Flexion (C7) 5 Normal Extension (C6) 4+ Good+ PT-OP-T Assessment and Plan Start: 05/23/22 12:49 Freq: Status: Active Protocol: Document 07/19/22 16:07 AMB (Rec: 07/19/22 16:09 AMB [id number]) Physical Therapy Assessment Goals Two Impairment Strength Short Term Goal (STG) Rolly will be consistent and independent with a HEP. STG Duration 4 weeks One Impairment Pain Short Term Goal (STG) Rolly will perform 10 pull ups without elbow pain. STG Duration 4 weeks Retirement Goal (LTG) Rolly will wake from sleeping without elbow pain. LTG Duration 8 weeks Assessment Summary Assessment Rolly attended 2 visits of PT for his elbow before his authorization and has not been seen in the clinic since. Scheduling at the PT clinic in addition to his work and travel schedule made it difficult for him to be seen regularly and he has not called back to schedule with a new authorization. HE would be welcome to return with a new authorization. Physical Therapy Plan Discharge Physical Therapy Discharge Reasons No Longer Attending PT
== END 2022-07-24 12:02 | disposition home or self-care (01) ==
LOC: PHYS 08:15
PROVIDERS: Family Provider Student in an Organized Health Care Education/Training Program; PCP Student in an Organized Health Care Education/Training Program; Referring Provider Family Medicine; Visit Provider Family Medicine
DX: M77.10 Lateral epicondylitis, unspecified elbow (principal)
CPT/HCPCS: 97035; 97140; 97161

== ENCOUNTER → 2023-12-06 10:02 | Outpatient (CLI) | payer OTHER, SELFPAY ==
--- NOTE | 2023-12-06 10:08 | DI.RAD.S_ITS ---
PROCEDURE: XR KNEE LT 3V INDICATIONS: L knee eval TECHNIQUE: 3 views of the knee were acquired. COMPARISON: None. FINDINGS: Bones: No fractures or dislocations. No suspicious bony lesions. Soft tissues: No joint effusion. No suspicious soft tissue calcifications. IMPRESSION: No acute bony abnormality or significant effusion. If pain persists, followup imaging in 5-7 days is recommended to exclude occult fracture. Dictated by: Elvie Woodruff M.D. on 12/06/2023 at 10:58 Approved by: Elvie Woodruff M.D. on 12/06/2023 at 10:58
== END ==
PROVIDERS: Family Provider Student in an Organized Health Care Education/Training Program; PCP Family Medicine; Referring Provider Family Medicine; Visit Provider Family Medicine
DX: M25.562 Pain in left knee (principal)
CPT/HCPCS: 73562

== ENCOUNTER → 2023-12-07 09:37 | Outpatient (CLI) | payer OTHER, SELFPAY ==
[2023-12-07 10:29] LABS: Add Manual Diff / Slide Review NO; Basophils Absolute Auto 100 /uL (0-100); Basophils Percent Auto 1.5 % (0-2); Eosinophils Absolute Auto 200 /uL (0-450); Eosinophils Percent Auto 3.3 % (2-4); Hematocrit 42.4 % (41-53); Hemoglobin 14.4 g/dL (13.5-17.5); Lymphocytes Absolute Auto 2100 /uL (1100-4500); Lymphocytes Percent Auto 39.8 % (25-40); Mean Corpuscular Hemoglobin 30.4 PG (26-34); Mean Corpuscular Volume 89.4 fL (80-100); Monocytes Absolute Auto 500 /uL (0-900); Monocytes Percent Auto 8.9 % (3-14); Neutrophils Absolute Auto 2400 /uL (1500-7000); Neutrophils Percent Auto 46.5 % (50-75); Platelet Count 256 X10^3/uL (150-400); Red Blood Cell Count 4.75 X10^6/uL (4.5-5.9); Red Cell Distribution Width 13.6 % (11.6-14.8); White Blood Cell Count 5.2 X10^3/uL (4.5-11.0)
[2023-12-07 10:59] LABS: Alanine Aminotransferase 23 IU/L (<50); Albumin 3.9 g/dL (3.5-5.0); Albumin Globulin Ratio 1.4 (1.0-2.8); Alkaline Phosphatase 49 U/L (38-126); Aspartate Aminotransferase 27 IU/L (17-59); BUN Creatinine Ratio 17.8 (6-22); Bilirubin Total 0.8 mg/dL (0.2-1.3); Blood Urea Nitrogen 16 mg/dL (9-20); Calcium 9.3 mg/dL (8.4-10.2); Carbon Dioxide 29 mmol/L (22-32); Chloride 106 mmol/L (98-107); Cholesterol 107 mg/dL (140-199); Estimated Glomerular Filt Rate > 60 mL/min (>60); Globulin 2.8 g/dL (1.7-4.1); Glucose 80 mg/dL (70-100); HDL Cholesterol 38 mg/dL (40-60); HEMOLYSIS < 15 (0-50); LDL Cholesterol Calculated 58 mg/dL (<100); Potassium 4.8 mmol/L (3.4-5.1); Sodium 139 mmol/L (137-145); Total Protein 6.7 g/dL (6.3-8.2); Triglycerides 57 mg/dL (35-150)
== END ==
LOC: LAB 09:38
PROVIDERS: Family Provider Student in an Organized Health Care Education/Training Program; PCP Family Medicine; Referring Provider Family Medicine; Visit Provider Family Medicine
DX: Z00.00 Encounter for general adult medical examination without abnormal findings (principal)
CPT/HCPCS: 36415; 80053; 80061; 85025

== ENCOUNTER → 2024-08-12 08:04 | Outpatient (CLI) | payer OTHER, SELFPAY ==
--- NOTE | 2024-08-12 08:05 | DI.MRI.S_ITS ---
PROCEDURE: MR KNEE LT WO CON INDICATIONS: Persistent knee pain since November TECHNIQUE: Noncontrast sagittal PD fast spin echo and T2 fast spin echo with fat saturation, sagittal 3-D FLASH with fat saturation; coronal T1 spin echo and PD fast spin echo with fat saturation, and axial PD fast spin echo with fat saturation through the knee. COMPARISON: None. FINDINGS: Image quality: Excellent. Menisci: Subtle signal abnormality involving posterior horn of medial meniscus extending to medial 1/3 of inferior articulating surface consistent with subtle oblique tear. Focal vertical tear involving inner aspect of medial meniscus posterior horn extending to both superior and inferior articulating surfaces. The lateral meniscus is intact. The meniscal root ligaments appear intact. Cruciate ligaments: The anterior and posterior cruciate ligaments appear intact. Medial structures: The medial collateral ligament appears mildly thickened with surrounding edema. Visualized portions of the pes anserinus tendons appear normal. No abnormal bursal fluid. Lateral structures: The lateral collateral ligament, long and short heads of the biceps femoris tendon appear intact. The popliteus tendon appears thickened with intrasubstance T2 hyperintense signal . Iliotibial band appears normal. Anterior structures: The quadriceps and patellar tendons appear intact. Patellar alignment is normal. No femoral trochlear dysplasia or ventral trochlear prominence. No edema in the infrapatellar fat pad. Bones and cartilage: No bone marrow contusions or fractures. The cartilage of the medial and lateral femorotibial compartments, as well as the patellofemoral compartment, appears normal in thickness. Joint space: There is small knee joint fluid. No Ornelas's cyst. Normal appearing synovial plicae are incidentally noted. IMPRESSION: 1. Oblique tear involving medial periphery of posterior horn medial meniscus extending to inferior articulating surface. Vertical tear involving inner aspect of posterior horn medial meniscus extending to both superior and inferior articulating surfaces. No lateral meniscal tear. 2. The cruciate ligaments are intact. 3. Low-grade MCL sprain. 4. Proximal popliteus tendinosis. 5. No marrow edema. No fracture or dislocation. Articulating cartilage is intact. Small joint effusion, no loose bodies. Dictated by: Win Hay M.D. on 08/12/2024 at 12:54 Approved by: Win Hay M.D. on 08/12/2024 at 13:00
== END ==
PROVIDERS: Family Provider Student in an Organized Health Care Education/Training Program; PCP Family Medicine; Referring Provider Family Medicine; Visit Provider Family Medicine
DX: S83.412A Sprain of medial collateral ligament of left knee, initial encounter (principal); S83.222A Peripheral tear of medial meniscus, current injury, left knee, initial encounter; M25.462 Effusion, left knee; M25.562 Pain in left knee; G89.29 Other chronic pain
CPT/HCPCS: 73721

== ENCOUNTER → 2025-03-05 15:38 | Outpatient (CLI) | payer OTHER, SELFPAY ==
--- NOTE | 2025-03-05 15:39 | DI.RAD.S_ITS ---
PROCEDURE: XR LUMBAR SPINE 2-3V INDICATIONS: eval TECHNIQUE: 3 views of the lumbar spine were acquired. COMPARISON: None. FINDINGS: Bones: 5 [id number] vertebrae are present. There is normal bony alignment. No vertebral body compression fractures. No suspicious bony lesions. Mild disc height loss at L5-S1. Soft tissues: Overlying bowel gas pattern is normal. No suspicious soft tissue calcifications. IMPRESSION: Mild degenerative disc disease at L5-S1. Dictated by: Dylon Camp M.D. on 03/05/2025 at 16:41 Approved by: Dylon Camp M.D. on 03/05/2025 at 16:41
== END ==
PROVIDERS: Family Provider Student in an Organized Health Care Education/Training Program; PCP Family Medicine; Referring Provider Family Medicine; Visit Provider Family Medicine
DX: S39.012A Strain of muscle, fascia and tendon of lower back, initial encounter (principal); M51.379 Other intervertebral disc degeneration, lumbosacral region without mention of lumbar back pain or lower extremity pain; X58.XXXA Exposure to other specified factors, initial encounter
CPT/HCPCS: 72100

== ENCOUNTER → 2025-03-25 19:42 | Outpatient (CLI) | payer OTHER, SELFPAY ==
--- NOTE | 2025-03-25 19:44 | DI.MRI.S_ITS ---
PROCEDURE: MR LUMBAR SPINE WO CON INDICATIONS: Persistent lower back pain with right lower extremity radicu TECHNIQUE: Noncontrast sagittal T1 spin echo and T2 fast echo, sagittal STIR, and T2 fast spin echo through the lumbar spine. In cases with scoliosis, additional coronal T2 fast spin echo may be performed. COMPARISON: None. FINDINGS: Image quality: Excellent. Alignment and Curvature: There is normal bony alignment. Bone Marrow: Marrow is of normal overall signal. No acute vertebral body compression fractures. Spinal Cord: Conus medullaris terminates at the T12 level. Visualized cord demonstrates normal signal and size. Paraspinous Soft Tissues: No paravertebral masses. T12-L1: Normal appearance. L1-L2: Normal appearance. L2-L3: Normal appearance. L3-L4: Normal appearance. L4-L5: Mild disc bulge as well as bilateral facet arthropathy and ligamentum flavum thickening. No significant spinal stenosis L5-S1: There is a disc bulge as well as mild bilateral facet arthropathy. No significant spinal stenosis. IMPRESSION: Minimal degenerative changes with no spinal stenosis, disc extrusion or acute osseous lesion seen. Dictated by: Robby Gonsales M.D. on 03/26/2025 at 21:25 Approved by: Robby Gonsales M.D. on 03/26/2025 at 21:29
== END ==
LOC: MRI 19:43
PROVIDERS: Family Provider Student in an Organized Health Care Education/Training Program; PCP Family Medicine; Referring Provider Family Medicine; Visit Provider Family Medicine
DX: M54.50 Low back pain, unspecified (principal)
CPT/HCPCS: 72148

== ENCOUNTER → 2025-04-16 13:39 | Outpatient (CLI) | payer OTHER, SELFPAY ==
[2025-04-16 14:43] LABS: Add Manual Diff / Slide Review NO; Hematocrit 42.3 % (41-53); Hemoglobin 14.6 g/dL (13.5-17.5); Lymphocytes Absolute Auto 2200 /uL (1100-4500); Mean Corpuscular HGB Conc 34.5 % (30-36); Mean Corpuscular Hemoglobin 30.5 PG (26-34); Mean Corpuscular Volume 88.3 fL (80-100); Platelet Count 259 X10^3/uL (150-400)
[2025-04-16 15:19] LABS: Alanine Aminotransferase 26 IU/L (<50); Albumin 4.2 g/dL (3.5-5.0); Albumin Globulin Ratio 1.4 (1.0-2.8); Alkaline Phosphatase 52 U/L (38-126); Blood Urea Nitrogen 13 mg/dL (9-20); Calcium 9.8 mg/dL (8.4-10.2); Carbon Dioxide 26 mmol/L (22-32); Chloride 106 mmol/L (98-107); Cholesterol 126 mg/dL (140-199); Estimated Glomerular Filt Rate > 60 mL/min (>60); Globulin 3.0 g/dL (1.7-4.1); Glucose 98 mg/dL (70-99); HDL Cholesterol 45 mg/dL (40-60); HEMOLYSIS < 15 (0-50); Sodium 140 mmol/L (137-145); Total Protein 7.2 g/dL (6.3-8.2); Triglycerides 44 mg/dL (35-150)
[2025-04-16 15:22] LABS: Potassium 5.6 mmol/L (3.4-5.1)
[2025-04-16 15:50] LABS: TSH w/ Reflex to FT4 0.97 uIU/mL (0.47-4.68)
== END ==
PROVIDERS: Family Provider Student in an Organized Health Care Education/Training Program; PCP Family Medicine; Referring Provider Family Medicine; Visit Provider Family Medicine
DX: Z00.00 Encounter for general adult medical examination without abnormal findings (principal); K58.0 Irritable bowel syndrome with diarrhea; S39.012A Strain of muscle, fascia and tendon of lower back, initial encounter
CPT/HCPCS: 36415; 80053; 80061; 84443; 85025